=== PATIENT | male | born 1945 | race Caucasian/White ===

== ENCOUNTER → 2018-04-28 | Outpatient (CLI) | payer OTHER | LOC: M.RAD 09:00 | DX: M85.89 Other specified disorders of bone density and structure, multiple sites (principal); M81.0 Age-related osteoporosis without current pathological fracture ==

== ENCOUNTER → 2019-05-21 | Outpatient (CLI) | payer OTHER | LOC: M.ULTRA 16:54 | DX: M79.661 Pain in right lower leg (principal); M79.89 Other specified soft tissue disorders; R60.0 Localized edema ==

== ENCOUNTER → 2020-04-06 | Outpatient (CLI) | payer OTHER | LOC: M.CT 11:27 | PROVIDERS: ATTEND Internal Medicine Cardiovascular Disease | DX: Z13.6 Encounter for screening for cardiovascular disorders (principal) ==

== ENCOUNTER → 2020-04-22 | Outpatient (CLI) | payer MEDICARE ==
--- NOTE | 2020-04-22 18:45 | CARDNUC ---
[place] [address] CARDIAC NUCLEAR IMAGING REPORT Name: PAULINO CORREIA Carmen Room: [facility]#: [id number] Admission: 04/22/20 Attend Phys: Anuj Manzo, Discharge: Date of : 43 Date of Service: 04/22/20 1844 Report #: [id number] THIS REPORT FOR: cc: Marsha Patel Linda J. DO Liston, Michael J. MD [facility] ~ APPROVED REPORT Imaging Protocol: Stress Tc-99m/Rest Tc-99m 1 day Study performed: 04/22/2020 08:35:00 Indication: high calcium score Patient Location: Out-Patient Stress Tech: Germania Olson Stress Nurse: Rocio Jovel RN Ht: 5 ft 8 in Wt: 192 lbs BSA: 2.01 m2 BMI: 29.18 Medical History Medical History: HTN Medications: amlodipine, asa-81, benazepril Allergies: No known drug allergies Cardiac Risk Factors: Age, HTN, FHX of CAD Exercise History: Physically active Resting Data Rest SPECT myocardial perfusion imaging was performed in supine position 30 minutes following the intravenous injection of 10.2 mCi of Tc-99m Sestamibi. Time of rest injection: 08 The images were gated to evaluate regional wall motion and calculate left ventricular ejection fraction. Administration Route: IV Administration Site: Right Arm Exercise Stress At peak stress, the patient was injected intravenously with 34.1mCi of Tc-99m Sestamibi. Time of stress injection: 10:10 Administration Route: IV Administration Site: Right Arm Heart Rate at time of stress injection: 130 bpm. Patient continued to exercise for 1 minute(s). [place] [address] CARDIAC NUCLEAR IMAGING REPORT Name: BRENPAULINO A Room: [facility]#: [id number] Admission: 04/22/20 Attend Phys: Anuj Manzo, Discharge: Date of : 43 Date of Service: 04/22/20 1844 Report #: [id number] Gated Stress SPECT was performed 30 minutes after stress injection. The images were gated to evaluate regional wall motion and calculate left ventricular ejection fraction. Prone imaging was performed. Stress Test Details Stress Test: Exercise stress testing was performed using a Jorje protocol. HR Max Heart Rate (APMHR): 145 bpm Resting HR: 71 bpm Target HR (85% APMHR): 123 bpm Max HR Achieved: 130 bpm % of APMHR: 89 Recovery HR: 99 bpm BP Resting BP: 115/71 mmHg Max BP: 194/72 mmHg Recovery BP: 155/90 mmHg ECG Resting ECG: Sinus Rhythm, RBBB Stress ECG: Sinus Tachycardia ST Change: None Arrhythmia: None Recovery ECG: Sinus Rhythm, RBBB Recovery ST Change: None Recovery Arrhythmia: None Clinical Reason for Termination: Leg pain/Claudication Exercise duration: 9 min sec Exercise capacity: 10.16 METs Overall Exercise Capacity for Age: Superior Functional Aerobic Impairment 90% The patient had no significant cardiac symptoms with standard Jorje protocol exercise. Stress ECG Conclusion The baseline twelve-lead EKG shows sinus rhythm with right bundle branch block. EKGs obtained during and post exercise shows sinus rhythm and sinus tachycardia with continued right bundle branch block. There were no significant ST segment changes when compared to baseline. There were no significant stress[place] [address] CARDIAC NUCLEAR IMAGING REPORT Name: BRENPAULINO A Room: [facility]#: [id number] Admission: 04/22/20 Attend Phys: Anuj Manzo, Discharge: Date of : 43 Date of Service: 04/22/20 1844 Report #: [id number] Study Quality Study: Good Artifact: No artifact Study Data At rest, the left ventricular ejection fraction was 33%.. Post stress, the left ventricular ejection was 42%.. TID = 0.88. Perfusion Perfusion images show focal apical defect that appears fixed of moderate intensity. No other significant fixed or reversible defects are identified. Wall Motion There is global hypokinesis. 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 There is hypokinesis of the apex. Nuclear Conclusion ECG Findings: negative for ischemia Clinical Findings: negative for ischemia Nuclear Findings: negative for ischemia Exercise Capacity: normal Left Ventricular Function: abnormal Perfusion study suggest prior apical infarct. There were no regions of stress-induced ischemia identified. Global LV systolic function appears moderately decreased. Focal wall motion abnormalities noted. This is not a high risk study. <Conclusion> The baseline twelve-lead EKG shows sinus rhythm with right bundle branch block. EKGs obtained during and post exercise shows sinus rhythm and sinus tachycardia with continued right bundle branch block. There were no significant ST segment changes when compared to baseline. There were no significant stress-induced arrhythmias. <ELECTRONICALLY SIGNED> By: Anuj Manzo MD, FACC 04/22/204 43 43 Anuj Manzo MD, FACC /INF
== END ==
LOC: M.NUC 04-08 07:53 → M.CRD 04-20 13:00 → M.NUC 07:50
PROVIDERS: ATTEND Internal Medicine Cardiovascular Disease
DX: R93.1 Abnormal findings on diagnostic imaging of heart and coronary circulation (principal); I10 Essential (primary) hypertension

== ENCOUNTER → 2020-05-11 | Outpatient (CLI) | payer MEDICARE ==
--- NOTE | 2020-05-11 16:24 | 2DMMODE ---
[place] [address] 2 D/M-MODE ECHOCARDIOGRAM Name: PAULINO CORREIA Carmen Room: [facility]#: [id number] Admission: 05/11/20 Attend Phys: Anuj Manzo, Discharge: Date of : 43 Date of Service: 05/11/20 1624 Report #: [id number] THIS REPORT FOR: cc: Marsha Patel Linda J. DO Blick,Giovani Bryant MD [facility] ~ APPROVED REPORT Study performed: 05/11/2020 13:39:08 EXAM: Comprehensive 2D, Doppler, and color-flow Echocardiogram Patient Location: Out-Patient BSA: 2.01 HR: 83 bpm BP: 118/72 mmHg Other Information Study Quality: Good Indications Hypertension/HDD 2D Dimensions IVSd: 11.94 (7-11mm) LVOT Diam: 20.08 (18-24mm) LVDd: 35.42 mm PWd: 11.81 (7-11mm) Ascending Ao: 39.71 (22-36mm) LVDs: 28.73 (25-40mm) Aortic Root: 24.48 mm Volumes Left Atrial Volume (Systole) LA ESV Index: 11.70 mL/m2 Aortic Valve AoV Peak Juan R.: 1.50 m/s AO Peak Gr.: 9.04 mmHg LVOT Max P.21 mmHg AO Mean Gr.: 4.84 mmHg LVOT Mean P.97 mmHg LVOT Max V: 0.74 m/s AO V2 VTI: 22.02 cm LVOT Mean V: 0.44 m/s WARD (VTI): 1.77 cm2 LVOT V1 VTI: 12.33 cm AI [place]: 2.45 m/s2 AI PHT: 530.05 [place] [address] 2 D/M-MODE ECHOCARDIOGRAM Name: PAULINO CORREIA Room: [facility]#: [id number] Admission: 05/11/20 Attend Phys: Anuj Manzo, Discharge: Date of : 43 Date of Service: 05/11/20 1624 Report #: [id number] Mitral Valve E/A Ratio: 0.56 MV Decel. Time: 327.37 ms MV E Max Juan R.: 0.48 m/s MV PHT: 94.94 ms MVA (PHT): 2.32 cm2 TDI E/Lateral E': 5.33 E/Medial E': 9.60 Medial E' Juan R.: 0.05 m/s Lateral E' Juan R.: 0.09 m/s Pulmonary Valve PV Peak Juan R.: 0.89 m/s PV Peak Gr.: 3.16 mmHg Left Ventricle The left ventricle is normal size. There is normal LV segmental wall motion. Mild concentric left ventricular hypertrophy. Left ventricular systolic function is normal. The left ventricular ejection fraction is within the normal range. LVEF is 55-60%. Grade I - abnormal relaxation pattern. Right Ventricle The right ventricle is normal size. The right ventricular systolic function is normal. Atria The left atrium size is normal. The right atrium size is normal. Aortic Valve Aortic valve is mildly calcified. Mild aortic regurgitation. There is no aortic valvular stenosis. Mitral Valve The mitral valve is normal in structure. There is trace mitral valve regurgitation noted. No evidence of mitral valve stenosis. Tricuspid Valve The tricuspid valve is normal in structure. There is trace tricuspid valve regurgitation noted. Pulmonic Valve The pulmonary valve is normal in structure. There is no pulmon[place] [address] 2 D/M-MODE ECHOCARDIOGRAM Name: PAULINO CORREIA Room: [facility]#: [id number] Admission: 05/11/20 Attend Phys: Anuj Manzo, Discharge: Date of : 43 Date of Service: 05/11/20 1624 Report #: [id number] Great Vessels Aortic root is mildly dilated. IVC is not well visualized. Pericardium There is no pericardial effusion. <Conclusion> Mild concentric left ventricular hypertrophy. LVEF is 55-60%. Aortic valve is mildly calcified. Mild aortic regurgitation. Aortic root is mildly dilated. <ELECTRONICALLY SIGNED> By: Giovani Beth MD, FACC 05/11/20 1624 1624 1624 Giovani Beth MD, FAC /INF
== END ==
LOC: M.CRD 13:38 → M.RAD 14:30
PROVIDERS: ATTEND Internal Medicine Cardiovascular Disease
DX: I35.0 Nonrheumatic aortic (valve) stenosis (principal); M81.0 Age-related osteoporosis without current pathological fracture; I11.9 Hypertensive heart disease without heart failure; I77.810 Thoracic aortic ectasia; I35.1 Nonrheumatic aortic (valve) insufficiency